=== PATIENT | male | born 1975 | race African-American/Black ===

== ENCOUNTER 2018-07-06 10:54 | Emergency (ER) | payer SELFPAY ==
[~2018-07-06] VITALS: Ht 167.6 cm; Wt 99.0 kg
[2018-07-06 13:14] VITALS: BP 133/81
== END 2018-07-06 13:15 | disposition home or self-care (01) | DRG 948 ==
LOC: ED 10:54
DX: G89.18 Other acute postprocedural pain (principal); S82.202D Unspecified fracture of shaft of left tibia, subsequent encounter for closed fracture with routine healing; S82.832D Other fracture of upper and lower end of left fibula, subsequent encounter for closed fracture with routine healing; S82.451D Displaced comminuted fracture of shaft of right fibula, subsequent encounter for closed fracture with routine healing; R22.42 Localized swelling, mass and lump, left lower limb; R22.41 Localized swelling, mass and lump, right lower limb; V49.60XS Unspecified car occupant injured in collision with unspecified motor vehicles in traffic accident, sequela